=== PATIENT | female | born 1970 | race Caucasian/White ===

== ENCOUNTER 2018-11-01 10:55 | Outpatient (CLI) | payer OTHER ==
[2018-11-01 12:53] LABS: Hemoglobin 10.3 g/dL (12.0-16.0); Mean Corpuscular HGB CONC 32.6 g/dL (32.0-36.0); Mean Corpuscular Hemoglobin 23.5 pg (27.0-31.0); Mean Corpuscular Volume 72.1 fL (78.0-98.0); Mean Platelet Volume 7.9 fL (7.4-10.4); Platelet Count 321 thou/uL (130-400); RBC Distribution Width 18.1 % (11.5-14.5); Red Blood Cell (RBC) Count 4.39 mill/uL (4.20-5.40); White Blood Cell (WBC) Count 7.3 thou/uL (4.8-10.8)
[2018-11-01 13:10] LABS: ALT (SGPT) 22 U/L (8-55); AST (SGOT) 22 U/L (5-34); Albumin 4.2 g/dL (3.5-5.0); Alkaline Phosphatase 125 U/L (40-150); Anion Gap 14 mmol/L (10-20); BUN (Urea Nitrogen) 10 mg/dL (7.0-18.7); Bilirubin, Total 0.8 mg/dL (0.2-1.2); Calc. Creatinine Clearance 0 mL/min (70-130); Calcium 9.3 mg/dL (7.8-10.44); Carbon Dioxide 20 mmol/L (22-29); Chloride 105 mmol/L (98-107); Estimated GFR-MDRD 82; Globulin 3.1 g/dL (2.4-3.5); Glucose 85 mg/dL (70-105); Potassium 4.1 mmol/L (3.5-5.1); Protein, Total 7.3 g/dL (6.0-8.3); Sodium 135 mmol/L (136-145)
[2018-11-01 13:18] LABS: BHCG - Serum Negative (NEGATIVE); Pregs Control Background? CLEAR/WHITE (CLR/WHITE); Pregs Control Bar Appear? YES (CONTROL BAR)
--- NOTE | 2018-11-01 17:26 | EKG ---
Test Reason : Blood Pressure : / mmHG Vent. Rate : 070 BPM Atrial Rate : 070 BPM P-R Int : 162 ms QRS Dur : 086 ms QT Int : 428 ms P-R-T Axes : 047 031 035 degrees QTc Int : 462 ms Normal sinus rhythm Prolonged QT Abnormal ECG No previous ECGs available Confirmed by DR. Seth MCKNIGHT ([id number]) on 11/01/2018 5:26:26 PM Referred By: ARIA Confirmed By:DR. Seth MCKNIGHT
== END 2018-11-01 10:56 | disposition home or self-care (01) ==
LOC: LABBT 10:55
PROVIDERS: ATTEND Obstetrics & Gynecology
DX: Z01.818 Encounter for other preprocedural examination (principal); N93.8 Other specified abnormal uterine and vaginal bleeding
CPT/HCPCS: 80053; 84703; 85027; 86850; 86870; 86900; 86901; 86905; 93005; 93010

== ENCOUNTER 2018-11-05 12:00 | Inpatient (IN) | payer OTHER ==
[2018-11-01 11:30] VITALS: BMI 41.2
[2018-11-08] MEDS ORDERED: Gabapentin 300 MG CAP ONE (08:44)
[2018-11-08] MEDS ORDERED: Famotidine/PF 20 mg/2ml Vial ONE (08:44)
[2018-11-08] MEDS ORDERED: Acetaminophen 500 MG TAB ONE (08:44)
[2018-11-08] MEDS ORDERED: CeleCOXIB 100 MG CAP ONE (08:44)
[2018-11-08] MEDS ORDERED: Bupivacaine HCl 0.5%/Epinephrine 1:200,000/PF 30 ml Vial ONE (10:34)
[2018-11-08] MEDS ORDERED: Fentanyl 100 MCG/2 ML VIAL ONE ×2 (10:36→13:42)
[2018-11-08] MEDS ORDERED: Meperidine HCl/PF 25 MG/ML VIAL ONE (10:36)
[2018-11-08] MEDS ORDERED: Midazolam HCl 2 mg/2 ml Vial ONE (10:39)
[2018-11-08] MEDS ORDERED: Promethazine HCl 25 MG/ML VIAL SLOW IVP PRN (12:45)
[2018-11-08] MEDS ORDERED: Promethazine HCl 25 MG/ML VIAL IM PRN ×2 (12:45→12:59)
[2018-11-08] MEDS ORDERED: Ketorolac Tromethamine 30 MG/ML VIAL IVP PRN (12:45)
[2018-11-08] MEDS ORDERED: Ondansetron HCl/PF 4 MG/2 ML Vial IVP PRN (12:45)
[2018-11-08] MEDS ORDERED: Meperidine HCl/PF 25 MG/ML VIAL SLOW IVP PRN (12:45)
[2018-11-08] MEDS ORDERED: Morphine 4 MG/ML VIAL SLOW IVP PRN (12:59)
[2018-11-08] MEDS ORDERED: Acetaminophen 325 MG TAB PO PRN (12:59)
[2018-11-08] MEDS ORDERED: Ondansetron PF 4 MG/2 ML Vial IVP PRN (12:59)
[2018-11-08] MEDS ORDERED: diphenhydrAMINE 25 MG CAP PO PRN (12:59)
[2018-11-08] MEDS ORDERED: Bisacodyl 10 MG SUPP PR PRN (12:59)
[2018-11-08] MEDS ORDERED: HYDROcodone/Acetaminophen 5/325 mg Tablet PO PRN (12:59)
[2018-11-08] MEDS ORDERED: Zolpidem Tartrate 5 MG TAB PO PRN (12:59)
[2018-11-08] MEDS ORDERED: PHENYLEPHRINE-NS 100 MCG/ML 10 ML SYRINGE ONE (13:21)
[2018-11-08] MEDS ORDERED: Glycopyrrolate 0.2 MG/ML 5 ML SYRINGE ONE (13:21)
[2018-11-08] MEDS ORDERED: Ondansetron PF 4 MG/2 ML Vial ONE (13:21)
[2018-11-08] MEDS ORDERED: Lidocaine 1% PF 5 ML VIAL ONE (13:21)
[2018-11-08] MEDS ORDERED: Dexamethasone 20 MG/5 ML VIAL ONE (13:21)
[2018-11-08] MEDS ORDERED: PROPOFOL 200 MG/20 ML VIAL ONE (13:21)
[2018-11-08] MEDS ORDERED: Rocuronium Bromide 10 MG/ML (10ML VIAL) ONE (13:21)
[2018-11-08] MEDS: Sodium Chloride 0.9% 1,000 ML IV SCH ×2 (15:19→21:03)
[2018-11-08] MEDS: Ferrous Sulfate 325 MG TAB PO SCH (15:33)
[2018-11-08] MEDS: Simethicone Chewable 80 MG TAB PO PRN ×2 (16:05→21:02)
[2018-11-08] MEDS ORDERED: Ketorolac Tromethamine 30 MG/ML VIAL IVP SCH (18:00)
[2018-11-08] MEDS: Ketorolac Tromethamine 30 MG/ML VIAL IVP SCH (20:29)
[2018-11-08] MEDS: HYDROcodone/Acetaminophen 5/325 mg Tablet PO PRN (20:30)
[2018-11-08] MEDS: Losartan 25 MG TAB PO SCH (20:40)
[2018-11-08] MEDS ORDERED: Amitriptyline HCl 25 MG TAB PO SCH (21:00)
[2018-11-08] MEDS ORDERED: Carvedilol 25 MG TAB PO SCH (21:00)
[2018-11-09] MEDS: Ketorolac Tromethamine 30 MG/ML VIAL IVP SCH ×2 (03:41→09:20)
[2018-11-09] MEDS: Sodium Chloride 0.9% 1,000 ML IV SCH (05:02)
[2018-11-09 07:38] VITALS: BP 102/57; TEMP 98.1
[2018-11-09] MEDS: HYDROcodone/Acetaminophen 5/325 mg Tablet PO PRN (07:45)
[2018-11-09] MEDS ORDERED: Milk Of Magnesia 30 ML UDCUP PO PRN (07:52)
--- NOTE | 2018-11-09 07:57 | OP ---
DATE OF PROCEDURE: 11/08/2018 PREOPERATIVE DIAGNOSES: 1. Abnormal uterine bleeding. 2. Submucosal uterine leiomyoma. 3. Anemia. POSTOPERATIVE DIAGNOSES: 1. Abnormal uterine bleeding. 2. Submucosal uterine leiomyoma. 3. Anemia. PROCEDURES PERFORMED: 1. Robotic assisted total laparoscopic hysterectomy with a bilateral salpingectomy. 2. Cystoscopy. SURGEON: Siobhan Pinto DO FIGURE REFINISHER AND REPAIRER: Nuris Colmenares PA-C COMPLICATIONS: None. ESTIMATED BLOOD LOSS: 150 mL. ANESTHESIA: General. FINDINGS: Normal external genitalia. Normal vaginal and cervical epithelium. Uterus approximately 8 cm in length, normal-appearing uterus with submucosal fibroid. Normal-appearing bilateral fallopian tube remnants and normal- appearing ovaries bilaterally. Bilateral ureteral peristalsis was noted transperitoneally. Also bilateral ureteral peristalsis and efflux noted on cystoscopy and normal-appearing bladder mucosa. INDICATIONS FOR THE PROCEDURE: Ms. Katharine Valentine is a 48-year-old G4, P4, who presented with complaints of heavy prolonged abnormal uterine bleeding that was resulting in anemia. The patient had imaging which displayed a 4-cm submucosal fibroid. She was counseled on options and elected to have definitive surgical management with a hysterectomy. The patient underwent endometrial biopsy and Pap smear, which were both benign. She was on iron supplementation for her anemia. PROCEDURE IN DETAIL: The patient was brought to the operating room. She was placed under general anesthesia. The patient was placed in dorsal lithotomy position using Fredy stirrups. She was prepped and draped in a sterile fashion. An official time-out was performed. She was given Ancef for surgical prophylaxis. A single-sided speculum was placed in the vagina. The anterior aspect of the cervix was grasped using a single-tooth tenaculum. The uterus was sounded to 8 cm. An 8 cm length and 4 cm width cup were then appropriately secured using the ANTONIA manipulator. The remaining instruments were then removed from the vagina and a Noble catheter was inserted, noting clear urine. Gloves were exchanged and attention was turned to the abdominal portion. A supraumbilical incision was made using the scalpel. The Veress needle was inserted, noting a normal pressure and the abdomen was insufflated using carbon dioxide. A 12-mm trocar was then placed at this site. The pelvis was then evaluated noting the findings above. The patient was placed in Trendelenburg position. The Trendelenburg position was limited due to her obesity and anesthesia concerns. However, we were able to do some Trendelenburg. The assistant activities director ports were then placed using two robotic ports, one on the right and one on the left aspects of the abdomen and additional 11 mm port on the right aspect were placed using local anesthesia and under direct visualization. The robot was then docked to the patient, the instruments were inserted, then the hysterectomy was begun first on the left side. The left fallopian tube remnant was then elevated and removed away from the ovary and completely removed. The left round ligament was then coagulated multiple times and transected. The left utero-ovarian ligament was then coagulated multiple times and transected. The anterior leaf of the broad ligament was undermined, carried down toward the level of the bladder, allowing inferior reflection of the bladder. There was an increased adipose tissue within the peritoneum that required dissection. The posterior leaf of the peritoneum on the left side was then undermined and transected down toward the level of the uterosacral ligament. It was difficult due to dense tissue on the left side to allow complete reflection, however, this was done as much as possible to allow reflection of the pelvic anatomy on the lateral side wall. The left uterine vessels were further skeletonized then coagulated multiple times, however, not yet transected. Attention was then turned over to the right aspect. The right fallopian tube remnant was then elevated, coagulated, and removed from the right ovary. The right round ligament was then coagulated multiple times and transected. The right utero-ovarian ligament was also coagulated and transected. There was a small amount of bleeding from this area, which was quickly controlled using the bipolar cautery. The posterior leaf of the broad ligament was then undermined and transected down toward the level of the uterosacral ligament. The anterior leaf of the broad ligament was then undermined, transected toward the bladder. This loose areolar tissue was then dissected and transected to allow inferior reflection of the bladder. The right uterine vessels were then coagulated multiple times and transected. The right uterine vessels were then transected. During this process, there was increased bleeding from the right uterine vessels. Therefore, the right uterine artery was grasped slightly proximal to the edge of the ring, elevated away from the pelvic sidewall and then coagulated at this point to allow for control of hemostasis on the right uterine vessel, this controlled the acute bleeding. There was approximately 50-100 mL of blood loss from the bleeding from the vessel at this point, which was quickly controlled. The left uterine vessels were then coagulated again and then transected. The colpotomy was performed in a circumferential fashion completely removing the vaginal tissue away from the cervical epithelium. The uterus and cervix were then delivered through the vagina. The pelvis was then irrigated and cleared of all clot and debris. There were some small areas of oozing circumferentially around the vaginal cuff and hemostasis was created using the Bovie. The vaginal cuff was then closed in a running fashion using 1 Stratafix suture. The pelvis was then again irrigated and cleared of all clot and debris. The bladder was back filled, normal in appearance, showing no weakness in the serosa. The bilateral ureters were identified transperitoneally noting peristalsis bilaterally. Dilan was then placed along the vaginal cuff and also the pressure was decreased and then noted to still be hemostatic after the intraabdominal pressure was decreased. The instruments were then removed. The robot was undocked from the patient. A cystoscopy was performed, at this point, a 30-degree cystoscope was inserted into the urethra and into the bladder noting a normal bladder mucosa. Bilateral ureteral orifices were identified and peristalsis and efflux was identified from both ureteral orifices. The bladder mucosa also was intact with no areas of damage. The cystoscopy was performed due to the concern of the proximity of the uterine artery to the right ureter that required additional cautery because of bleeding. The cystoscope was then removed and the Noble catheter was replaced. Gloves were exchanged and attention was turned back to the abdominal portion. The abdomen had been deflated, the trocars were removed. The fascia at the camera port was closed in a [id number] fashion using 0 Vicryl. The skin was closed using 4-0 Monocryl and Dermabond. The patient tolerated the procedure well. All counts were correct x2. There were no complications. The patient was extubated without difficulty and transferred to the recovery room in hemodynamically stable condition. Job ID: [id number] MTDD
[2018-11-09 08:50] LABS: #Lymphocytes 1.6 thou/uL (1.20-3.40); #Monocytes 0.5 thou/uL (0.11-0.59); #Neutrophils 12.1 thou/uL (1.40-6.50); %Basophils 0.1 % (0.0-1.0); %Eosinophils 0.2 % (0.0-10.0); %Lymphocytes 11.1 % (21.0-51.0); %Monocytes 3.5 % (0.0-10.0); %Neutrophils 85.1 % (42.0-75.0); Hemoglobin 9.9 g/dL (12.0-16.0); Mean Corpuscular HGB CONC 32.1 g/dL (32.0-36.0); Mean Corpuscular Hemoglobin 23.7 pg (27.0-31.0); Mean Corpuscular Volume 73.8 fL (78.0-98.0); Mean Platelet Volume 7.8 fL (7.4-10.4); Platelet Count 353 thou/uL (130-400); RBC Distribution Width 20.2 % (11.5-14.5); Red Blood Cell (RBC) Count 4.17 mill/uL (4.20-5.40); White Blood Cell (WBC) Count 14.2 thou/uL (4.8-10.8)
[2018-11-09] MEDS ORDERED: Hydrochlorothiazide 25 MG TAB PO SCH (09:00)
[2018-11-09 09:12] LABS: Anion Gap 15 mmol/L (10-20); BUN (Urea Nitrogen) 12 mg/dL (7.0-18.7); Calc. Creatinine Clearance 122 mL/min (70-130); Calcium 8.9 mg/dL (7.8-10.44); Carbon Dioxide 21 mmol/L (22-29); Chloride 104 mmol/L (98-107); Estimated GFR-MDRD 70; Glucose 136 mg/dL (70-105); Potassium 3.7 mmol/L (3.5-5.1); Sodium 136 mmol/L (136-145)
[2018-11-09] MEDS: Ferrous Sulfate 325 MG TAB PO SCH (09:19)
--- NOTE | 2018-11-09 09:34 | PRG ---
DATE OF SERVICE: 11/09/2018 Postoperative day #1 status post robotic-assisted total laparoscopic hysterectomy with a bilateral salpingectomy and cystoscopy. SUBJECTIVE: The patient reports minimal to moderate pain, controlled with oral medications. Denies any vaginal bleeding. Reports tolerance of oral intake. No flatus yet. Voiding and ambulating without difficulty. OBJECTIVE: VITAL SIGNS: Blood pressure 102/57, pulse is 75, respiratory rate is 20, oxygen saturation is 97% on room air, and temperature is 98.1. GENERAL: No acute distress. CARDIOVASCULAR: Regular rate and rhythm. RESPIRATORY: Unlabored breathing. Clear to auscultation bilaterally. ABDOMEN: Soft, mild distention, mild tenderness to palpation of appropriate for postoperative day #1. Present bowel sounds in all 4 quadrants; however, slightly quiet. Incisions clean, dry, and intact x4. EXTREMITIES: No edema. Negative Homans. LABORATORY DATA: CBC and BMP are pending. ASSESSMENT: Postoperative day #1, status post robotic-assisted total laparoscopic hysterectomy with bilateral salpingectomy and cystoscopy. PLAN: Continue postoperative care this morning, advancing diet and ambulating. We will give milk of magnesia this morning to help with bowel activity. Labs are still pending including a CBC and a BMP. We will plan for discharge after laboratory assessment is complete and the patient tolerates breakfast this morning. Job ID: [id number] MTDD
--- NOTE | 2018-11-10 06:12 | DIS ---
DATE OF ADMISSION: 11/08/2018 DATE OF DISCHARGE: 11/09/2018 ADMISSION DIAGNOSES: Postoperative pain control status post robotic-assisted total laparoscopic hysterectomy with bilateral salpingectomy and cystoscopy. DISCHARGE DIAGNOSES: Postoperative pain control status post robotic-assisted total laparoscopic hysterectomy with bilateral salpingectomy and cystoscopy. ADMISSION AND DISCHARGE PHYSICIAN: Siobhan Pinto DO BRIEF HOSPITAL COURSE: Ms. Katharine Valentine is a 48-year-old female, postoperative day #1 status post robotic-assisted total laparoscopic hysterectomy with bilateral salpingectomy and cystoscopy. Her postoperative course has been benign. She is meeting all requirements for discharge. Her laboratory values and exam are within normal limits for her postoperative course. FOLLOWUP: 2 weeks. DISCHARGE HOME MEDICATIONS: 1. Ibuprofen 800 mg one tablet every 8 hours p.r.n. pain. 2. [place] 5/325 mg one tablet every 4-6 hours p.r.n. pain, #30, 0 refills. DIET: Regular. ACTIVITY RESTRICTIONS: Pelvic rest. No heavy lifting, pushing, or pulling x6 weeks. Job ID: [id number] [facility]
[2018-11-14] MEDS ORDERED: Ibuprofen 800 MG TAB PO SCH (06:00)
== END 2018-11-09 11:15 | disposition home or self-care (01) | DRG 742 ==
LOC: SURG A 11-08 07:49 → 3SE 11-08 14:13
PROVIDERS: ADMIT Obstetrics & Gynecology; ATTEND Obstetrics & Gynecology
PROC: 0UT94ZZ Resection of Uterus, Percutaneous Endoscopic Approach (ICD-10-PCS; principal; 2018-11-08)
PROC: 0UT74ZZ Resection of Bilateral Fallopian Tubes, Percutaneous Endoscopic Approach (ICD-10-PCS; 2018-11-08)
PROC: 0TJB8ZZ Inspection of Bladder, Via Natural or Artificial Opening Endoscopic (ICD-10-PCS; 2018-11-08)
DX: D25.0 Submucous leiomyoma of uterus (principal); Z68.41 Body mass index [BMI] 40.0-44.9, adult; D64.9 Anemia, unspecified; N93.9 Abnormal uterine and vaginal bleeding, unspecified; E66.9 Obesity, unspecified
CPT/HCPCS: 36415; 80048; 85025; 86850; 86900; 86901; 86922; 88307; J0131; J0670; J0690; J1100; J1885; J2001; J2175; J2250; J2270; J2405; J2704; J3010; Q9968; S0028